=== PATIENT | female | born 1990 | race American Indian/Alaskan Native ===

== ENCOUNTER 2018-11-20 17:17 | Outpatient (CLI) | payer OTHER | END 2018-11-20 17:18 | disposition home or self-care (01) | LOC: C.LAB 17:17 ==

== ENCOUNTER 2018-12-12 03:37 | Emergency (ER) | payer OTHER ==
[2018-12-12 03:50] VITALS: RESP 16
[2018-12-12] MEDS ORDERED: Sodium Chloride 0.9% 1,000 ML IV ONE (04:30)
[2018-12-12 04:34] LABS: BASO # 0.1 K/uL (0.0-0.2); BASO % 1.2 % (0.0-2.0); EOS # 0.1 K/uL (0.0-0.7); EOS % 1.1 % (0.0-4.0); HEMOGLOBIN 10.6 g/dL (11.0-16.0); LYMPH # 1.7 K/uL (1.0-4.3); LYMPH % 24.1 % (20.0-40.0); MEAN CELL VOLUME 82.1 fL (81.0-99.0); MEAN CORPUSCULAR HEMOGLOBIN 27.4 pg (27.0-31.0); MEAN CORPUSCULAR HGB CONC 33.4 g/dL (33.0-37.0); MEAN PLATELET VOLUME 9.2 fL (7.2-11.7); MONO # 0.4 K/uL (0.0-0.8); NEUT # 4.8 K/uL (1.8-7.0); NEUT % 67.6 % (50.0-75.0); RBC 3.87 Mil/uL (3.80-5.20); RED CELL DISTRIBUTION WIDTH 15.8 % (11.5-14.5); WHITE BLOOD COUNT 7.1 K/uL (4.8-10.8)
--- NOTE | 2018-12-12 05:00 | C.PDOC ---
History Of Present Illness 28 year old female seen 4 days ago at [facility] and told she was having miscarriage after 8 week presents stating she has had a lot of bleeding and cramping tonight. Denies other complaints at this time. Time Seen by Provider: 12/12/18 03:48 Chief Complaint (Nursing): Female Genitourinary History Per: Patient History/Exam Limitations: no limitations Onset/Duration Of Symptoms: Hrs Current Symptoms Are (Timing): Still Present Quality Of Discomfort: Cramping Associated Symptoms: denies: Nausea, Vomiting Alleviating Factors: None Recent travel outside of the [place]: No Abnormal Vaginal Bleeding: Yes Past Medical History Reviewed: Historical Data, Nursing Documentation, Vital Signs Vital Signs: Last Vital Signs Temp 98 F 12/12/18 03:47 Pulse 85 12/12/18 03:47 Resp 16 12/12/18 03:47 BP 111/70 12/12/18 03:47 Pulse Ox 99 12/12/18 03:47 Family History: States: Unknown Family Hx - Social History Hx Alcohol Use: No Hx Substance Use: No Review Of Systems Constitutional: Negative for: Fever, Chills Eyes: Negative for: Pain, Redness ENT: Negative for: Mouth Swelling Cardiovascular: Negative for: Chest Pain, Palpitations Respiratory: Negative for: Cough, Shortness of Breath Gastrointestinal: Positive for: Abdominal Pain. Negative for: Nausea, Vomiting, Diarrhea Genitourinary: Positive for: Vaginal Bleeding. Negative for: Dysuria Musculoskeletal: Negative for: Back Pain Skin: Negative for: Rash Neurological: Negative for: Weakness, Numbness Physical Exam - Physical Exam Appears: Non-toxic Skin: Normal Color, Warm, No Pale Head: Atraumatic, Normacephalic Eye(s): bilateral: Normal Inspection, PERRL, EOMI Oral Mucosa: Moist Chest: Symmetrical Respiratory: No Accessory Muscle Use, Other (Normal inspiratory effort) Gastrointestinal/Abdominal: Soft, No Tenderness, No Distention Pelvic: Other (Moderate bleeding with some pooling in the vault, products of conception noticed and obtained for send off) Neurological/Psych: Oriented x3, Normal Speech ED Course And Treatment - Laboratory Results Result Diagrams: 12/12/18 04:31 O2 Sat by Pulse Oximetry: 99 (Room air) Pulse Ox Interpretation: Normal Medical Decision Making Medical Decision Making: Products of conceptions being expelled from cervix, patient does not appear anemic at this time, does not have abdominal or pelvic tenderness, will check c bc and bhcg. Disposition Counseled Patient/Family Regarding: Diagnosis, Need For Followup, Rx Given - Disposition Disposition: HOME/ ROUTINE Disposition Time: 06:07 Condition: STABLE Prescriptions: Methylergonovine [Methergine] 0.2 mg PO TID 3 Days tab traMADol [Ultram] 50 mg PO TID PRN #12 tab PRN Reason: Pain, Severe (8-10) Instructions: Miscarriage (DC) Forms: General Discharge Instructions, [facility] ([place]), Work Excuse - Clinical Impression Clinical Impression: Miscarriage - PA / SALES AND MARKETING COORDINATOR / Resident Statement MD/DO has reviewed & agrees with the documentation as recorded. - Scribe Statement The provider has reviewed the documentation as recorded by the Scribchalo Wade All medical record entries made by the Marjibchalo were at my direction and personally dictated by me. I have reviewed the chart and agree that the record accurately reflects my personal performance of the history, physical exam, medical decision making, and the department course for this patient. I have also personally directed, reviewed, and agree with the discharge instructions and disposition.
[2018-12-12 05:50] VITALS: BP 102/69; PULSE 78; TEMP 98.1
[2018-12-12 06:10] VITALS: O2SAT 99
--- NOTE | 2018-12-12 21:43 | CP.PCM.CON ---
History of Present Illness - History of Present Illness History of Present Illness: 28 yo female seen 4 days ago at [facility] with a miscarriage at 8 weeks and now presented to ER with increased vaginal bleeding and cramping tonite. No other complaints. Review of Systems - Constitutional Constitutional: As Per HPI - EENT Eyes: As Per HPI Ears: As Per HPI - Reproductive: Female Reproductive:Female: Cycle <21 Days, Abnormal Vaginal Bleeding - Musculoskeletal Musculoskeletal: As Per HPI - Neurological Neurological: As Per HPI Past Patient History - Infectious Disease Hx of Infectious Diseases: None - Past Medical History & Family History Past Medical History?: No Past Family History: Reviewed and not pertinent - Past Social History Smoking Status: Never Smoked Alcohol: None Drugs: Denies - GENITOURINARY/GYNECOLOGICAL LMP:: 10/13/2018 : 1 Para: 0 - PSYCHIATRIC Hx Substance Use: No - SURGICAL HISTORY Hx Surgeries: No Other/Comment: x 1 Meds Home Medications: Home Medication List Medication Instructions Recorded Confirmed Type Methylergonovine [Methergine] 0.2 mg PO TID 3 Days tab 12/12/18 Rx traMADol [Ultram] 50 mg PO TID PRN #12 tab 12/12/18 Rx Allergies/Adverse Reactions: Allergies Allergy/AdvReac Type Severity Reaction Status Date / Time No Known Allergies Allergy Verified 12/08/18 16:20 Physical Exam - GI/Abdominal Exam GI & Abdominal Exam: Normal Bowel Sounds, Soft - Exam External exam: NORMAL EXTERNAL EXAM Speculum exam: NORMAL SPECULUM EXAM (No vaginal bleeding at time of my exam) Bimanual exam: NORMAL BIMANUAL EXAM - Extremities Exam Extremities exam: Positive for: normal inspection Results - Vital Signs Recent Vital Signs: Last Vital Signs Temp 98.1 F 12/12/18 05:49 Pulse 78 12/12/18 05:49 Resp 16 12/12/18 05:49 BP 102/69 12/12/18 05:49 Pulse Ox 99 12/12/18 06:31 - Labs Result Diagrams: 12/12/18 04:31 Labs: Laboratory Results - last 24 hr 12/12/18 12/12/18 04:31 04:31 WBC 7.1 RBC 3.87 Hgb 10.6 L Hct 31.8 L MCV 82.1 MCH 27.4 MCHC 33.4 RDW 15.8 H Plt Count 248 MPV 9.2 Neut % (Auto) 67.6 Lymph % (Auto) 24.1 [place] % (Auto) 6.0 Eos % (Auto) 1.1 Baso % (Auto) 1.2 Neut # (Auto) 4.8 Lymph # (Auto) 1.7 [place] # (Auto) 0.4 Eos # (Auto) 0.1 Baso # (Auto) 0.1 Beta HCG, Quant 06354.00 - Impressions Impression: Incomplete spontaneous Stable H&H S/P large bleeding episode Minimal bleeding at time of exam and no pain Recommended to DC home with Rx for Methergine 0.2 mg po TID x 3 days and pain medication Advised to f/up with her Grinder Set Up Operator in 48-72 hours Stable and Satisfactory condition for discharge Thanks for consultation Will sign off at this time
== END 2018-12-12 06:33 | disposition home or self-care (01) ==
LOC: C.ER 03:37
DX: O03.4 Incomplete spontaneous abortion without complication (principal)
CPT/HCPCS: 84702; 85025; 88305; 96360; 99284; J7030